=== PATIENT | male | born 1985 | race African-American/Black ===

== ENCOUNTER 2016-08-20 13:30 | Emergency (ER) | payer OTHER ==
[~2016-08-20] VITALS: Ht 175.3 cm; Wt 80.0 kg
[2016-08-20 13:31] VITALS: BP 130/59; PULSE 60; RESP 15; TEMP 98.1; O2SAT 98
--- NOTE | 2016-08-20 14:14 | PD ---
HPI Chief Complaint: Numbness/Tingling Time Seen by Provider: 13:44 Travel History International Travel<30 days: No Contact w/Intl Traveler<30days: No Traveled to known affect area: No History of Present Illness HPI Is a 31-year-old man who presents to the emergency department complaining of painful paresthesias to the back of his head, on the right side rating up around the head and toward the face. States is been intermittent, lasting seconds at a time, ongoing for the past year or so. Over the past 24 hours or so it's been more constant. No history of significant head injuries or neck injuries are limited does play football. He otherwise has been feeling generally well and healthy. History Past Medical History Medical History: Denies Significant Hx Tetanus Vaccination: Unknown Past Surgical History Surgical History: No Previous Surgery Social History Alcohol Use: No Tobacco Use: No Allergies-Medications (Allergen,Severity, Reaction): Coded Allergies: No Known Allergies (Unverified , 08/20/16) Reported Meds & Prescriptions Reported Meds & Active Scripts Active No Active Prescriptions or Reported Medications Review of Systems Except as stated in HPI: all other systems reviewed are Neg Physical Exam Narrative Gen.: Well-appearing 31-year-old man, no acute distress. Scalp: No significant tenderness. There is no obvious allodynia. Neck: No areas of tenderness, full painless range of motion. Neuro:: Cranial nerves II through 12 are intact. Normal facial symmetry. Data Data Last Documented VS Vital Signs Date Time Temp Pulse Resp B/P Pulse Ox O2 Delivery O2 Flow Rate FiO2 08/20/16 13:31 98.1 60 15 130/59 98 MDM Medical Decision Making Medical Screen Exam Complete: Yes Emergency Medical Condition: Yes Differential Diagnosis Occipital neuralgia, cervical strain or sprain, cervicogenic headache, other Narrative Course Medical decision making the 31-year-old man presents emergent department with what appears to be pretty classic symptoms of a cervical neuralgia with intermittent lancinating pain lasting seconds at a time and it distribution of the greater and lesser occipital nerve. Looks otherwise well. No evidence of head or neck injury. We 'll recommend outpatient follow-up with neurology. Diagnosis Primary Impression: Occipital neuralgia of right side Referrals: Basilio Robles MD 1 week Med/Other Pt SpecificInfo: No Change to Meds Scripts No Active Prescriptions or Reported Meds Disposition: 01 DISCHARGE HOME Condition: Stable Viel,Benny C. MD Aug 20, 2016 14:14
[2016-08-20 14:23] VITALS: BP 133/61
== END 2016-08-20 14:24 | disposition home or self-care (01) ==
LOC: NEPD 13:30
DX: M54.81 Occipital neuralgia (principal)
CPT/HCPCS: 99281